=== PATIENT | male | born 1975 | race Caucasian/White ===

== ENCOUNTER 2016-06-22 23:08 | Emergency (ER) | payer OTHER | END 2016-06-23 03:00 | disposition left against medical advice (07) | LOC: ER1 23:08 | DX: Z53.21 Procedure and treatment not carried out due to patient leaving prior to being seen by health care provider (principal) ==

== ENCOUNTER 2016-08-14 20:30 | Emergency (ER) | payer OTHER ==
[2016-08-14 21:23] LABS: HEMOGLOBIN 12.8 gm/dl (14.0-17.5); RED BLOOD COUNT 3.75 M/UL (4.20-5.50); WHITE BLOOD COUNT 6.3 K/UL (4.5-11.0)
[2016-08-14 22:30] LABS: BUN/CREATININE RATIO 11 (0-10)
== END 2016-08-15 01:16 | disposition home or self-care (01) ==
LOC: ER1 20:30
PROVIDERS: Family Medicine
DX: G40.909 Epilepsy, unspecified, not intractable, without status epilepticus (principal); E11.9 Type 2 diabetes mellitus without complications; F17.210 Nicotine dependence, cigarettes, uncomplicated; Z79.899 Other long term (current) drug therapy
CPT/HCPCS: 36415; 80053; 85025; 85379; 93005; 96372; 96374; 99285; J1650; J1953

== ENCOUNTER → 2016-08-15 | Outpatient (CLI) | payer OTHER | LOC: US 12:08 | DX: R60.0 Localized edema (principal); M79.604 Pain in right leg; M79.605 Pain in left leg | CPT/HCPCS: 93970 ==

== ENCOUNTER 2016-09-12 22:14 | Emergency (ER) | payer OTHER ==
[2016-09-13 01:04] LABS: RED BLOOD COUNT 3.78 M/UL (4.20-5.50); WHITE BLOOD COUNT 9.6 K/UL (4.5-11.0)
[2016-09-13 01:20] LABS: BUN/CREATININE RATIO 10 (0-10)
== END 2016-09-13 03:32 | disposition short-term general hospital (02) ==
LOC: ER1 22:14
PROVIDERS: Family Medicine
DX: G40.909 Epilepsy, unspecified, not intractable, without status epilepticus (principal); I10 Essential (primary) hypertension; E11.65 Type 2 diabetes mellitus with hyperglycemia
CPT/HCPCS: 36415; 36600; 70450; 71010; 80053; 80307; 81001; 82803; 85025; 94664; 96374; 96375; 99291; G0480; J1953; J2060

== ENCOUNTER → 2021-06-10 | Outpatient (CLI) | payer OTHER ==
[~2021-06-10] MED LIST: ALDACTONE50 MG PO; CITALOPRAM HBR20 MG PO; ENULOSE10 GM/15 M PO; FAMOTIDINE20 MG PO; FLAGYL500 MG PO; GLUCOPHAGE1000 MG PO; HYDROCHLOROTHIA25 MG PO; KEPPRA750 MG PO; LACTULOSE20 GM/30 M PO; LASIX40 MG PO; LEVAQUIN750 MG PO; LISINOPRIL10 MG PO; PRINIVIL10 MG PO; THERAGRAN M TAB1 EA PO; TRAZODONE HCL100 MG PO; XIFAXAN 550 MG550 MG PO
== END ==
LOC: EXRD 09:58
DX: M54.2 Cervicalgia (principal); M54.50 Low back pain, unspecified; R05.9 Cough, unspecified; M47.812 Spondylosis without myelopathy or radiculopathy, cervical region; M51.34 Other intervertebral disc degeneration, thoracic region; M47.816 Spondylosis without myelopathy or radiculopathy, lumbar region; I70.0 Atherosclerosis of aorta
CPT/HCPCS: 71046; 72040; 72070; 72100